=== PATIENT | male | born 1950 | race Two or more races ===

== ENCOUNTER 2020-04-11 13:30 | Outpatient (CLI) | payer MEDICARE ==
--- NOTE | 2020-04-11 18:14 | Consultation ---
DATE OF CONSULTATION: 04/11/2020 CONSULTING PHYSICIAN: Aman Daily MD CHIEF COMPLAINT: Referral for screening colonoscopy. PAST MEDICAL HISTORY: Hypertension. PAST SURGICAL HISTORY: None. MEDICATION: Blood pressure medication. FAMILY HISTORY: Noncontributory. SOCIAL HISTORY: Patient denies any tobacco, alcohol, or drug use. ALLERGIES: No known drug allergies. REVIEW OF SYSTEMS: Twelve point review of systems was performed and was negative. PHYSICAL EXAMINATION: VITAL SIGNS: Temperature 96.9. Weight is 206. VITAL SIGNS: Stable. HEENT: Normocephalic, atraumatic. Sclerae anicteric. NECK: Supple. No evidence of obvious lymphadenopathy. CARDIOVASCULAR: Regular rate and rhythm. Plus S1-S2. LUNGS: Clear to auscultation bilaterally. ABDOMEN: Positive bowel sounds. Soft and nontender. No rebound. No guarding. No peritoneal sign. EXTREMITIES: No cyanosis, no clubbing, no edema. ASSESSMENT AND PLAN: A 69-year-old male needs a screening colonoscopy. Patient was informed the risks and benefits of procedure. Prep was explained to him. We will schedule him next available. Aman Daily M.D. DR: DANIEL JOB#: [id number] CC:
== END 2020-04-11 15:30 | disposition home or self-care (01) ==
LOC: PAN 13:30
DX: Z00.00 Encounter for general adult medical examination without abnormal findings (principal); I10 Essential (primary) hypertension
CPT/HCPCS: G0463

== ENCOUNTER 2020-05-09 07:00 | Day surgery (SDC) | payer MEDICAID, MEDICARE ==
[2020-05-09] VITALS (9 sets, daily range): BP systolic 110–143; BP diastolic 64–91
[~2020-05-09] VITALS: Ht 165.1 cm; Wt 90.7 kg
[2020-05-09] MEDS ORDERED: MELOXICAM15 MG PO (07:56)
[2020-05-09] MEDS ORDERED: [UNRECOGNIZED DRUG - OTHER] PO (07:56)
[2020-05-09] MEDS ORDERED: LISINOPRIL20 MG ORAL (07:56)
--- NOTE | 2020-05-09 08:31 | Anethesia Preoperative Eval ---
Anesthesia Pre-op PMH/ROS General Date of Evaluation: May 09, 2020 Time of Evaluation: 08:29 Anesthesiologist: Gilberto ASA Score: ASA 2 Mallampati Score Class I : Soft palate, uvula, fauces, pillars visible Class II: Soft palate, uvula, fauces visible Class III: Soft palate, base of uvula visible Class IV: Only hard plate visible Mallampati Classification: Class II Surgeon: Abimbola Diagnosis: Colon CA screening Surgical Procedure: Colonoscopy Anesthesia History: none Family History: no anesthesia problems Allergies: Coded Allergies: No Known Allergies (Unverified , 05/09/20) Medications: see eMAR Patient NPO?: Yes Past Medical History Cardiovascular: Reports: HTN; Denies: CAD, MT, valve dz, arrhythmia, other Pulmonary: Denies: asthma, COPD, RUDY, other Gastrointestinal/Genitourinary: Reports: GERD; Denies: CRI, ESRD, other Neurologic/Psychiatric: Denies: dementia, CVA, depression/anxiety, TIA, other Endocrine: Denies: DM, hypothyroidism, steroids, other HEENT: Denies: cataract (L), cataract (R), glaucoma, TAKOTNA (L), TAKOTNA (R), other Hematology/Immune: Denies: anemia, DVT, bleeding disorder, other Musculoskeletal/Integumentary: Denies: OA, RA, DJD, DDD, edema, other Other: obesity PMH Narrative: as above PSxH Narrative: see H&P Anesthesia Pre-op Phys. Exam Physician Exam Last Vital Signs Date Time Temp Pulse Resp B/P (MAP) Pulse Ox O2 Delivery O2 Flow Rate FiO2 05/09/20 08:10 Room Air 05/09/20 07:56 97.2 64 18 110/72 97 Constitutional: NAD Neurologic: CN 2-12 intact Cardiovascular: RRR, no M/R/G Respiratory: CTA Gastrointestinal: S/NT/ND Airway Exam Mallampati Score: Class II MO: full Neck: flexible ROM: full Teeth: missing Dentures: no upper, no lower Anesthesia Pre-op A/P Studies Pre-op Studies: EKG - SR Risk Assessment & Plan Assessment: ASA 2 Plan: MAC Status Change Before Surgery: Usama Henderson MD May 09, 2020 08:31
[2020-05-09] MEDS ORDERED: PRAVACHOL40 MG ORAL (08:57)
--- NOTE | 2020-05-09 08:58 | Short Stay Surgery H&P ---
History of Present Illness History of Present Illness Chief Complaint see office note HPI Aj Fregoso is a 69 year old male who was admitted on for Colon Scrrening Patient History Allergies: Coded Allergies: No Known Allergies (Unverified , 05/09/20) Medication History Scheduled Lisinopril (Lisinopril*), 20 MG ORAL DAILY, (Reported) Meloxicam* (Meloxicam*), 15 MG PO DAILY, (Reported) Pravastatin Sodium (Pravachol), 40 MG ORAL BEDTIME, (Reported) Physical Exam Vital Signs Last Vital Signs Date Time Temp Pulse Resp B/P (MAP) Pulse Ox O2 Delivery O2 Flow Rate FiO2 05/09/20 08:10 Room Air 05/09/20 07:56 97.2 64 18 110/72 97 Plan Attestation Are the patient's medical conditions optimized for surgery? Aman Daily MD May 09, 2020 08:58
--- NOTE | 2020-05-09 08:58 | Pre-Procedure Note/Attestation ---
Pre-Procedure Note/Attestation Complete Prior to Procedure Planned Procedure: not applicable Procedure Narrative: colonoscopy Indications for Procedure Pre-Operative Diagnosis: screening Attestation I attest that I discussed the nature of the procedure; its benefits; risks and complications; and alternatives (and the risks and benefits of such alternatives), prior to the procedure, with the patient (or the patient's legal visitor services representative). I attest that, if there was a reasonable possibility of needing a blood tra nsfusion, the patient (or the patient's legal visitor services representative) was given the [facility] standardized written summary, pursuant to the Melquiades [place] Blood Safety Act ([place] Health and Safety Code # 1645, as amended). I attest that I re-evaluated the patient just prior to the surgery and that there has been no change in the patient's H&P, except as documented below: Aman Daily MD May 09, 2020 08:58
[2020-05-09] MEDS ORDERED: LR 1000ml ONE (09:00)
[2020-05-09] MEDS ORDERED: fentaNYL 100 mcg/2 mL IV ONE (09:00)
[2020-05-09] MEDS ORDERED: Midazolam 2mg/2ml Inj ONE (09:00)
[2020-05-09] MEDS ORDERED: fentaNYL 100 mcg/2 mL IV PRN (09:15)
[2020-05-09] MEDS ORDERED: LR 1000ml 1,000 ML IVLG SCH (09:15)
--- NOTE | 2020-05-09 09:45 | Endoscopy Procedure Note ---
Endoscopy Procedure Note General Indication for Procedure: screening Procedures Performed: colonoscopy Operative Findings/Diagnosis: 9 polyps Specimen: yes Pt Tolerated Procedure Well: Yes Estimated Blood Loss: none Anesthesia Anesthesiologist: layne gilbert Anesthesia: MAC Inserted Devices Implant(s) used?: No Quality Quality of Bowel Preparation: Good Did scope reach the cecum?: Yes Was there any complications?: No GI Core Measures 50 yrs or older w/o bx or poly: No 10yrs. F/U recommended: Yes If not recommended, why?: Above average risk 18 years or older w/prev. colo: No Aman Daily MD May 09, 2020 09:45
--- NOTE | 2020-05-09 09:52 | Immediate Post-Op Evaluation ---
Immediate Post-Op Evalulation Immediate Post-Op Evalulation Procedure: Colonoscopy Polypectomy Date of Evaluation: May 09, 2020 Time of Evaluation: 09:51 IV Fluids: 600 Blood Products: none Estimated Blood Loss: none Urinary Output: none Blood Pressure Systolic: 142 Blood Pressure Diastolic: 72 Pulse Rate: 68 Respiratory Rate: 20 O2 Sat by Pulse Oximetry: 99 Temperature (Fahrenheit): 97.6 Pain Score (1-10): 1 Nausea: No Vomiting: No Complications none Patient Status: awake, patent, none Hydration Status: adequate Usama Macias MD May 09, 2020 09:52
--- NOTE | 2020-05-09 10:47 | 48 Hour Post Anesthesia Eval ---
Post Anesthesia Evaluation Procedure: Colonoscopy Polypectomy Date of Evaluation: May 09, 2020 Time of Evaluation: 10:46 Blood Pressure Systolic: 142 0: 76 Pulse Rate: 77 Respiratory Rate: 18 Temperature (Fahrenheit): 97.6 O2 Sat by Pulse Oximetry: 98 Airway: patent Nausea: No Vomiting: No Pain Intensity: 1 Hydration Status: adequate Cardiopulmonary Status: stable Mental Status/LOC: patient returned to baseline Follow-up Care/Observations: n/a Post-Anesthesia Complications: none Follow-up care needed: ready to discharge Usama Macias MD May 09, 2020 10:47
--- NOTE | 2020-05-09 17:32 | Procedure Note ---
DATE OF PROCEDURE: 05/09/2020 SURGEON: Aman Daily MD REFERRING PHYSICIAN: Dr. Roper. PROCEDURE: Colonoscopy, snare polypectomy, and biopsy. ANESTHESIA: Per Usama Macias MD INSTRUMENT: Olympus adult flexible colonoscope. INDICATION: Screening colonoscopy evaluation. The procedure, risks, benefits, and possible consequences, including hemorrhage, aspiration, perforation and infection, and alternative treatments, were explained to the patient/legal guardian by Dr. Aman Daily and the patient/legal guardian understood and accepted these risks. DESCRIPTION OF PROCEDURE: After informed consent was obtained and the patient was adequately sedated, first rectal examination was performed, which was positive for internal hemorrhoids. Then, the scope was advanced from the rectum to the cecum documented by the appendix orifice, ileocecal valve, and right upper quadrant palpation. Quality of prep was good. The patient had scattered diverticulosis in the left colon. The patient had a total of 9 polyps on colonoscopic examination. The first polyp was in the proximal ascending colon, roughly measured 7 mm, and removed with hot snare polypectomy technique. Subsequently, the patient had 4 polyps in the transverse colon, the largest one over a centimeter, and was removed with snare polypectomy technique. There was one flat polyp in the descending colon, removed with a snare, but unfortunately, after cutting with the snare, it was mainly burnt, so we could not catch that one. The patient had 3 polyps in the rectum, all 3 pedunculated, the largest one about 3 cm in size and possible malignant. This polyp was completely removed with the snare polypectomy technique and Hemoclip was placed at the base of it to prevent future bleeding. Another polyp was there, which was roughly about 1 cm, removed with hot snare polypectomy. One polyp right above the dentate line measured roughly about 6 mm and removed with hot snare polypectomy technique. The patient tolerated the procedure very well without any complication. SUMMARY OF FINDINGS: 1. Diverticulosis of the left colon. 2. A total of 9 polyps removed, one of them about 3 cm in size. 3. Internal hemorrhoids. RECOMMENDATIONS: Follow up pathology. If the patient has no evidence of any malignancy, we recommend repeat colonoscopy in 1 year. I want to thank Dr. Roper for this kind referral. Aman Tanna Daily DR: GARRY JOB#: [id number] CC: Dr. Roper
== END 2020-05-09 10:55 | disposition home or self-care (01) ==
LOC: GAS 07:00
DX: Z12.11 Encounter for screening for malignant neoplasm of colon (principal); K57.90 Diverticulosis of intestine, part unspecified, without perforation or abscess without bleeding; K64.8 Other hemorrhoids; K63.5 Polyp of colon
CPT/HCPCS: 45380; 45385; 94003; J2250; J2704; J3010; J7120; U0004; 94150

== ENCOUNTER 2020-05-30 13:12 | Outpatient (CLI) | payer MEDICARE ==
[~2020-05-30 13:12] MED LIST: LISINOPRIL20 MG ORAL; MELOXICAM15 MG PO; PRAVACHOL40 MG ORAL; [UNRECOGNIZED DRUG - OTHER] PO
--- NOTE | 2020-05-30 14:34 | General Progress Note ---
Subjective ROS Limited/Unobtainable: Yes Allergies: Coded Allergies: No Known Allergies (Unverified , 05/09/20) Objective General Appearance: alert EENT: normal ENT inspection Neck: supple Cardiovascular: normal rate Respiratory/Chest: chest wall non-tender Abdomen: normal bowel sounds, non tender, soft Extremities: non-tender Assessment/Plan Assessment/Plan: SUMMARY OF FINDINGS: 1. Diverticulosis of the left colon. 2. A total of 9 polyps removed, one of them about 3 cm in size. 3. Internal hemorrhoids. repeat colon in 1 year Aman Daily MD May 30, 2020 14:34
== END 2020-05-30 15:12 | disposition home or self-care (01) ==
LOC: PAN 13:12
DX: K57.90 Diverticulosis of intestine, part unspecified, without perforation or abscess without bleeding (principal); K63.5 Polyp of colon; K64.8 Other hemorrhoids
CPT/HCPCS: 99212